=== PATIENT | male | born 1960 | race Caucasian/White ===

== ENCOUNTER 2020-02-22 09:55 | Outpatient (CLI) | payer OTHER ==
--- NOTE | 2020-02-22 11:59 | MRI ---
MRI LEFT SHOULDER WITHOUT CONTRAST: HISTORY: Traumatic tear of left rotator cuff. COMPARISON: Reference is made to radiograph 02/16/2020. FINDINGS: Biceps tendon: Interstitial tearing of the biceps tendon at the intertrabecular groove extending to the intraarticul ar tendon which his highly tendinopathic. The tear does extend to the biceps labral complex. Labrum: The intrasubstance tear of the superior labrum at the biceps labral complex extends to the biceps ten don. The posterior superior and anterior superior labrum are both torn. There is also a subtle gera drolabral junctional tear posterior labrum. Rotator cuff: High-grade 60-70% undersurface partial tearing of the superior 2 cm fibrous subscapularis tendon. Th ere is a full-thickness full-width supraspinatus and infraspinatus tendon tear which starts at the fo otprint anterior 5 mm of the supraspinatus and turns into a peripheral zone tear of the mid and poste rior fibers and a myotendinous junctional tear of the infraspinatus. This is an obliquely oriented t ear and the torn fibers were retracted to the medial humeral head. Small lists of fibers of the foot print of the posterior supraspinatus and infraspinatus tendons. The teres minor is intact. Bones: Normal glenoid version. There is a type I acromion with mild lateral downsloping. No acute fracture or malalignment. Muscles: Partial retraction of the supraspinatus and infraspinatus muscles with myotendinous edema without atr ophy. Soft tissues: There is a large joint effusion. Large subacromial subdeltoid bursa effusion. IMPRESSION: 1. Full-thickness full-width supraspinatus and infraspinatus tendon tears, an obliquely oriented tea r beginning at the footprint anterior leading edge supraspinatus tendon extending into the critical z one of the posterior supraspinatus tendon and myotendinous junction of the infraspinatus tendon with stump fibers at the footprint of the posterior supraspinatus and of the infraspinatus. 2. High-grade undersurface partial tearing of the superior 2 cm fibers subscapularis. 3. Tear of the superior labrum extending to the biceps labral expansion and biceps tendon anteriorly and posteriorly. 4. Chondrolabral junctional tear nondisplaced of the posterior labrum. 5. Intraarticular high-grade interstitial tearing of the biceps tendon extending to the proximal int ertrabecular groove. 6. Intramuscular edema and mild retraction of the supraspinatus and infraspinatus muscles without at rophy appreciated. 7. High-grade atrophy of the superior teres minor. No mass of the quadrilateral space is apprecia caroline. POS: [facility]
== END 2020-02-22 09:56 | disposition home or self-care (01) ==
LOC: SCSMRI 09:55
PROVIDERS: ATTEND Orthopaedic Surgery
DX: S46.012A Strain of muscle(s) and tendon(s) of the rotator cuff of left shoulder, initial encounter (principal); M75.122 Complete rotator cuff tear or rupture of left shoulder, not specified as traumatic; M25.812 Other specified joint disorders, left shoulder; R60.0 Localized edema; Z87.39 Personal history of other diseases of the musculoskeletal system and connective tissue

== ENCOUNTER 2020-04-15 07:02 | Outpatient (CLI) | payer OTHER ==
[2020-04-15 16:12] LABS: #Eosinphils 0.1 10x3/uL (0.0-0.5); #Monocytes 0.7 10x3/uL (0.0-1.1); %Basophils 0.4 % (0.0-2.0); %Eosinophils 1.1 % (0.0-6.0); %Lymphocytes 14.3 % (18.0-47.0); %Monocytes 9.2 % (0.0-10.0); %Neutrophils 74.8 % (40.0-75.0); Hemoglobin 13.1 g/dL (14.0-18.0); Mean Corpuscular HGB CONC 33.7 G/DL (32.0-36.0); Mean Corpuscular Volume 94.9 fl (80.0-100.0); Mean Platelet Volume 10.4 fl (7.4-10.4); Platelet Count 277 10x3/uL (130-400); RBC Distribution Width 12.4 % (11.5-14.5)
[2020-04-15 16:52] LABS: Prothrombin Time 10.4 sec (9.5-12.1)
[2020-04-15 16:58] LABS: Anion Gap 17 mmol/L (10-20); BUN (Urea Nitrogen) 20 mg/dL (8.4-25.7); Calc. Creatinine Clearance 0 mL/min (70-130); Calcium 9.1 mg/dL (7.8-10.44); Carbon Dioxide 19 mmol/L (22-29); Chloride 104 mmol/L (98-107); Estimated GFR-MDRD 75; Glucose 88 mg/dL (70-105)
[2020-04-15 17:41] LABS: Potassium 4.8 mmol/L (3.5-5.1); Sodium 135 mmol/L (136-145)
[2020-04-16 12:09] LABS: SARS-CoV-2 MS2 Positive; SARS-CoV-2 N Gene Negative; SARS-CoV-2 S Gene Negative; SARS-CoV-2 by NAA Not Detected (NotDetected); SARS-CoV-2 orf1ab Negative
--- NOTE | 2020-04-16 23:44 | EKG ---
Test Reason : Blood Pressure : / mmHG Vent. Rate : 069 BPM Atrial Rate : 069 BPM P-R Int : 158 ms QRS Dur : 082 ms QT Int : 394 ms P-R-T Axes : 049 -18 024 degrees QTc Int : 422 ms Normal sinus rhythm Normal ECG No previous ECGs available Confirmed by Keisha PEREZ ([id number]) on 04/16/2020 11:43:41 PM Referred By: LILIANA Confirmed By:Keisha PEREZ
== END 2020-04-15 07:03 | disposition home or self-care (01) ==
LOC: LABBT 07:02
PROVIDERS: ATTEND Orthopaedic Surgery
DX: Z01.818 Encounter for other preprocedural examination (principal); M75.101 Unspecified rotator cuff tear or rupture of right shoulder, not specified as traumatic; Z20.828 Contact with and (suspected) exposure to other viral communicable diseases
CPT/HCPCS: 80048; 85025; 85610; 87635; 93005; 93010; U0003

== ENCOUNTER 2020-04-18 05:57 | Day surgery (SDC) | payer OTHER ==
[2020-04-17 13:44] VITALS: BMI 31.4
[2020-04-18] MEDS ORDERED: Midazolam HCl 2 mg/2 ml Vial ONE (06:47)
[2020-04-18] MEDS ORDERED: Fentanyl 100 MCG/2 ML VIAL ONE ×2 (06:47→07:21)
[2020-04-18] MEDS ORDERED: Sodium Chloride 0.9% 10 ML ONE (06:49)
[2020-04-18] MEDS ORDERED: Ropivacaine 0.2% 550 ML 550 ML NERVE BLCK SCH (08:00)
[2020-04-18] MEDS ORDERED: Promethazine HCl 25 MG/ML VIAL IM PRN (08:00)
[2020-04-18] MEDS ORDERED: HYDROcodone/Acetaminophen 5/325 mg Tablet PO PRN ×2 (08:00)
[2020-04-18] MEDS ORDERED: Ondansetron PF 4 MG/2 ML Vial IVP PRN (08:00)
[2020-04-18] MEDS ORDERED: traMADol HCl 50 MG TAB PO PRN ×2 (08:00)
[2020-04-18] MEDS ORDERED: Zolpidem Tartrate 5 MG TAB PO PRN (08:00)
[2020-04-18] MEDS ORDERED: Dexamethasone 20 MG/5 ML VIAL ONE (11:29)
[2020-04-18] MEDS ORDERED: Rocuronium Bromide 10 MG/ML (10ML VIAL) ONE (11:29)
[2020-04-18] MEDS ORDERED: EPHEDRINE 25 MG/5 ML SYRINGE ONE (11:29)
[2020-04-18] MEDS ORDERED: Lidocaine 1% PF 5 ML VIAL ONE (11:29)
[2020-04-18] MEDS ORDERED: PROPOFOL 200 MG/20 ML VIAL ONE (11:29)
[2020-04-18] MEDS ORDERED: Ondansetron PF 4 MG/2 ML Vial ONE (11:29)
[2020-04-18] MEDS ORDERED: Ketorolac Tromethamine 30 MG/ML VIAL ONE (11:29)
[2020-04-18] MEDS ORDERED: Bupivacaine HCl 0.5%/Epinephrine 1:200,000/PF 30 ml Vial ONE (11:29)
[2020-04-18] MEDS ORDERED: HYDROcodone/Acetaminophen 10/325 mg Tablet ONE (12:08)
--- NOTE | 2020-04-19 09:05 | OP ---
DATE OF PROCEDURE: 04/18/2020 PREOPERATIVE DIAGNOSES: 1. A left full-thickness rotator cuff tear, supraspinatus and infraspinatus leading edge, subscapularis. 2. Biceps interstitial tear. POSTOPERATIVE DIAGNOSES: Left full-thickness tear, supraspinatus and infraspinatus leading edges teres and leading edge of subscapularis with a biceps near full-thickness tear. PROCEDURE PERFORMED: 1. Left open rotator cuff repair. 2. Left biceps tenodesis. CLINIC NURSE: Millie Liz. ANESTHESIA: Dr. Tenorio. The patient received general intubation and interscalene block. ESTIMATED BLOOD LOSS: Less than 100 mL. TOURNIQUET TIME: None. ANTIBIOTICS: Ancef 2 g. IMPLANTS: The patient had three 5.5 metal corkscrews, two 4.75 SwiveLock. COMPLICATIONS: None. INDICATIONS FOR PROCEDURE: Mr. Villafana is a 59-year-old male with a large full-thickness rotator cuff tear, supraspinatus and infraspinatus with fatty infiltration of the minor teres. 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 I discussed with him that I would attempt an open repair. I was concerned about his soft tissues because of his history of bariatric surgery. I was concerned about the size of the tear as well as its retraction. The patient had significant atrophy, but I discussed that I felt his soft tissue quality would be poor because of his history of bariatric surgery and risk of repeat failure. I discussed the risks and benefits of surgery, biceps tenodesis with rotator cuff tear repair. He understood the risks and benefits of the procedure, would like to proceed. DESCRIPTION OF PROCEDURE: A time-out was performed designating the patient's left upper extremity as the operative site based on site, consents, and marking. After time-out, the patient's left upper extremity was prepped and draped in sterile fashion. The patient was in beach chair position. I made a skin incision over the patient's anterior one-third of the acromion moving down distally and marked distal line of 5 mm and ensured I was not close to the axillary nerve. I made skin incision just short of that, dissected down to the patient's deltoid. I found the raphae. I split the raphae and went up on the anterior one-third of the acromion, peeled down the deltoid, peeled it slightly posteriorly and off the lateral aspect of the acromion. I took an osteotome and knocked off just a small wedge of the bone, removed that wedge. I bluntly dissected distally to my incision to ensure I protected the nerve. I then exposed what was a massive cuff tear. The patient had a component that was tearing intrasubstance and a portion of it was still inserted on his tuberosity. I left that remnant to help sew the tissue together for a scar plane. I curetted with a curette about 5 more mm of bone. Curetted off all the bone surface to help with bleeding bone along the surfaces. I looked within the shoulder for the biceps. I could not hook or find a vestigial component of it. I finally found what looked like just a remnant of it which I tenotomized. I could not find a thick healthy tissue tendon to perform my tenotomy. I then went back and placed three 5.5 corkscrew anchors. The anchors were just about within the curetted off section of articular cartilage put in medial. I medialized the cuff. I started passing stitches. I passed all 6 through portion of the subscapularis, the anterior aspect of the cuff and through a portion of the supraspinatus and infraspinatus, but the patient's supraspinatus was macerated and torn. I had difficulty placing my third anchor, finding much tissue other than what appeared to be kind of a thickened bursa with a little bit of remnant capsule. Although I could find the biceps, the infraspinatus was difficult, so I could not get complete coverage posteriorly. Being happy with what I was able to get after I had already freed up the cuff superior and inferiorly for passing stitches, I then tied posterior to anterior. I pulled two limbs out of the patient's posterior cuff, so I had a total of 7 suture knots. I did pass 2 of the knots through the remnant lateral component of the cuff to help just sew that in for scar plane. I then passed all 7 sutures into two lateral rows, 4.75 SwiveLock. I cut the stitches, washed, repaired with #1 Ethibond to my deltoid, and sewed the deltoid to the patient's acromion. I then closed the interval with 0 Vicryl, oversewed with 2-0 and then the skin with 2-0 and then augustine. The patient will be placed in abduction pillow, remain in that. Begin elbow, wrist, and hand motion. I will see him back in 2 weeks. The patient's outlook is guarded given his massive cuff tear. My quality assurance assistant helped me throughout the case in incision exposure, controlling bleeding, placement of implants, repair t, and closure and repositioning onto his hospital bed. Job ID: [id number]
== END 2020-04-18 13:00 | disposition home or self-care (01) ==
LOC: SDC 05:57
PROVIDERS: ATTEND Orthopaedic Surgery
PROC: 3E0T3BZ Introduction of Anesthetic Agent into Peripheral Nerves and Plexi, Percutaneous Approach (ICD-10-PCS; principal; 2020-04-18)
PROC: 0LQ20ZZ Repair Left Shoulder Tendon, Open Approach (ICD-10-PCS; principal; 2020-04-18)
DX: M75.122 Complete rotator cuff tear or rupture of left shoulder, not specified as traumatic (principal); M66.822 Spontaneous rupture of other tendons, left upper arm; G89.18 Other acute postprocedural pain; D64.9 Anemia, unspecified; F17.290 Nicotine dependence, other tobacco product, uncomplicated; Z79.899 Other long term (current) drug therapy
CPT/HCPCS: A4306; C1713; J0690; J1100; J1885; J2250; J2405; J2704; J2795; J3010